=== PATIENT | male | born 1985 | race Caucasian/White ===

== ENCOUNTER 2017-04-08 21:18 | Emergency (ER) ==
[2017-04-08 21:24] VITALS: BP 155/79; TEMP 98.6; BMI 19.6
[2017-04-08] MEDS ORDERED: ULTRAM PO STA (21:40)
[2017-04-08] MEDS ORDERED: AMOXIL PO STA (21:40)
--- NOTE | 2017-04-08 21:46 | ED.PDOC ---
General ED Provider: Dr. RAUL BURNS Chief Complaint: Tooth Problem Stated Complaint: Patient states he has had bad teeth for a while but has not been able to get to a dentist that takes medicaid. States that his teeth started hurting 2 days ago. They are mostly on the front involving the gums also. Tried over the counter Tylenol and motrin with no relief. Time Seen by Physician: 21:44 Mode of Arrival: Walk-In Information Source: Patient, Family Exam Limitations: No limitations Nursing and Triage Documentation Reviewed and Agree: Yes EENT Complaint Exam - Dental/Oral Complaint/Exam Mechanism of Injury: No known trauma Onset/Duration: 2 days Symptoms Are: Still present Timing: Constant Initial Severity: Moderate Current Severity: Severe Location: Most of the front teeth and gums Character: Reports: Aching, Throbbing Aggravating: Reports: Heat, Cold, Chewing Alleviating: Reports: None Associated Signs and Symptoms: Reports: Swelling, Foul odor, Foul taste in mouth Cardiac Risk Factors: Reports: None Dental/Oral Surgical History: Reports: None Tooth Findings: Present: Gross decay, Gross caries Cervical Lymphadenopathy Present: No Facial Swelling Present: No Bleeding Present: No Oropharynx Findings: Absent: Clots, Active bleeding Septal Hematoma: No Foreign Body Present: No Dysphagia Present: No Drooling Present: No Asymmetrical Tonsillar Swelling Present: No Uvula Midline: No Sangeetha-tonsillar Fluctuence: No Trismus Present: No Palatal Petechiae Present: No Scarlatinaform Rash Present: No Teeth Picture: 1 - dental caries. Differential Diagnoses: Dental Abcess, Dental Caries, Gingivitis Review of Systems - Review Of Systems Constitutional: Reports: No symptoms Eyes: Reports: No symptoms Ears, Nose, Mouth, Throat: Reports: Mouth pain, Mouth swelling, Loose teeth Respiratory: Reports: No symptoms Cardiac: Reports: No symptoms GI: Reports: No symptoms : Reports: No symptoms Musculoskeletal: Reports: No symptoms Skin: Reports: No symptoms Neurological: Reports: No symptoms Endocrine: Reports: No symptoms Hematologic/Lymphatic: Reports: No symptoms All Other Systems: Reviewed and Negative Past Medical History - Past Medical History Previously Healthy: Yes Endocrine: Reports: None Cardiovascular: Reports: None Respiratory: Reports: None Hematological: Reports: None Gastrointestinal: Reports: None Genitourinary: Reports: None Neuro/Psych: Reports: None Musculoskeletal: Reports: None Cancer: Reports: None - Surgical History General Surgical History: Reports: None - Family History Family History: Reports: None - Social History Smoking Status: Current every day smoker, Heavy tobacco smoker Hx Substance Use: No Alcohol Screening: Occasionally - Immunizations Tetanus Shot up to Date: Yes Physical Exam - Physical Exam Appearance: Ill-appearing, No pain distress, Well-nourished Ill-appearing: Moderate Pain Distress: Moderate Eyes: JULIÁN, EOMI, Conjunctiva clear ENT: Ears normal, Nose normal, Oropharynx normal Respiratory: Airway patent, Breath sounds clear, Breath sounds equal, Respirations nonlabored Cardiovascular: RRR, Pulses normal, No rub, No murmur GI/: Soft, Nontender, No masses, Bowel sounds normal, No Organomegaly Musculoskeletal: Normal strength, ROM intact, No edema, No calf tenderness Skin: Warm, Dry, Normal color Neurological: Sensation intact, Motor intact, Reflexes intact, Cranial nerves intact, Alert, Oriented Psychiatric: Affect appropriate, Mood appropriate Critical Care Note - Critical Care Note Total Time (mins): 0 Course - Course Orders, Labs, Meds: Orders Category Date Time Status Amoxicillin [Amoxil] MEDS 04/08/17 21:40 Stat 500 mg PO ONCE STA Tramadol HCl [Ultram] MEDS 04/08/17 21:40 Stat 50 mg PO ONCE STA Medications Discontinued Medications Generic Name Dose Route Start Last Admin Trade Name Freq PRN Reason Stop Dose Admin Amoxicillin 500 mg 04/08/17 21:40 Amoxil PO 04/08/17 21:41 ONCE STA Tramadol HCl 50 mg 04/08/17 21:40 Ultram PO 04/08/17 21:41 ONCE STA Vital Signs: Temp Pulse Resp BP Pulse Ox 04/08/17 21:19 98.6 F 86 18 155/79 H 96 Departure - Departure Time of Disposition: 21:47 Disposition: HOME SELF-CARE Discharge Problem: Dental caries into pulp, Toothache Instructions: Dental Abscess (ED), Toothache (ED), Dry Mouth (ED) Condition: Fair Pt referred to PMD for follow-up: Yes Additional Instructions: Take Medications as prescribed Follow up with Dr GURROLA Prescriptions: Amoxicillin [Amoxil] 500 mg PO TID #30 capsule Ibuprofen [Motrin] 600 mg PO Q6H PRN #30 tablet PRN Reason: Analgesia Tramadol HCl [Ultram] 50 mg PO Q6H PRN #14 tablet PRN Reason: Severe Pain Allergies/Adverse Reactions: Allergies codeine Adverse Reaction (Verified 04/08/17 21:24) N/V Home Medications: Ambulatory Orders Amoxicillin [Amoxil] 500 mg PO TID #30 capsule 04/08/17 Ibuprofen [Motrin] 600 mg PO Q6H PRN #30 tablet 04/08/17 Tramadol HCl [Ultram] 50 mg PO Q6H PRN #14 tablet 04/08/17 Disposition Discussed With: Patient, Family
== END 2017-04-08 22:06 | disposition home or self-care (01) ==
LOC: ED 21:18
DX: K02.7 Dental root caries (principal); F17.210 Nicotine dependence, cigarettes, uncomplicated
CPT/HCPCS: 99282

== ENCOUNTER 2017-11-21 10:01 | Emergency (ER) ==
[2017-11-21 10:03] VITALS: BP 130/71; TEMP 97.5; BMI 20.3
--- NOTE | 2017-11-21 10:43 | ED.PDOC ---
General ED Provider: Dr. BETO MAYEN Chief Complaint: Tooth Problem Stated Complaint: CC:TOOTH ACHE. HPI: ZULY STATES THAT HE HAS EXPERIENCE PAIN IN THE LOWER LEFT JAW FOR 2-3 DAYS ALONG WITH SEVERE TOOTHACHE. PATIENT STATES THE PAIN HAS PROGRESSIVELY WORSENED SINCE THEN AND JAW IS SWOLLEN. 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 Time Seen by Physician: 10:20 Mode of Arrival: Walk-In Information Source: Patient Primary Care Provider: UNKNOWN- Nursing and Triage Documentation Reviewed and Agree: Yes Reviewed sepsis parameters & appropriate labs ordered?: Yes System Inflammatory Response Syndrome: Not Applicable Sepsis Protocol: For patient's 13 years and over: Temp is 96.8 and below OR 101 and greater Pulse >90 BPM Resp >20/minute Acutely Altered Mental Status Are patient's symptoms suggestive of a new infection, such as: -Pneumonia -Skin, Soft Tissue -Endocarditis -UTI -Bone, Joint Infection -Implantable Device -Acute Abdominal Infection -Wound Infection -Meningitis -Blood Stream Catheter Infection -Unknown System Inflammatory Response Syndrome: Not Applicable EENT Complaint Exam - Dental/Oral Complaint/Exam Mechanism of Injury: No known trauma Onset/Duration: for several days Symptoms Are: Still present Timing: Constant Current Severity: Severe Character: Reports: Aching, Throbbing Aggravating: Reports: Cold, Chewing Alleviating: Reports: None Associated Signs and Symptoms: Reports: Swelling, Foul taste in mouth Related History: Reports: Previous tooth problem Cardiac Risk Factors: Reports: None Tooth Findings: Present: Gross decay, Gross caries Cervical Lymphadenopathy Present: No Facial Swelling Present: No Bleeding Present: No Dysphagia Present: No Drooling Present: No Asymmetrical Tonsillar Swelling Present: No Uvula Midline: No Sangeetha-tonsillar Fluctuence: No Trismus Present: No Palatal Petechiae Present: No Scarlatinaform Rash Present: No Review of Systems - Review Of Systems Constitutional: Reports: No symptoms Eyes: Reports: No symptoms Ears, Nose, Mouth, Throat: Reports: Mouth pain, Mouth swelling. Denies: Ear pain, Ear discharge, Nose pain, Nose discharge, Epistaxis, Throat swelling Respiratory: Reports: No symptoms Cardiac: Reports: No symptoms GI: Reports: No symptoms : Reports: No symptoms Musculoskeletal: Reports: No symptoms Skin: Reports: No symptoms Neurological: Reports: No symptoms Endocrine: Reports: No symptoms Hematologic/Lymphatic: Reports: Swollen glands (lt submandibular) All Other Systems: Reviewed and Negative Past Medical History - Past Medical History Previously Healthy: Yes Endocrine: Reports: None Cardiovascular: Reports: None Respiratory: Reports: None Hematological: Reports: None Gastrointestinal: Reports: None Genitourinary: Reports: None Neuro/Psych: Reports: None Musculoskeletal: Reports: None Cancer: Reports: None - Surgical History General Surgical History: Reports: None - Family History Family History: Reports: None - Social History Smoking Status: Current every day smoker, Heavy tobacco smoker Hx Substance Use: No Alcohol Screening: Occasionally - Immunizations Tetanus Shot up to Date: Yes Physical Exam - Physical Exam Appearance: Well-appearing, Thin Ill-appearing: Mild Pain Distress: Mild Eyes: JULIÁN, EOMI, Conjunctiva clear ENT: Ears normal, Nose normal, Oropharynx normal (area of Lt mid Mandible edematous and tender. Oral cavity exam reveale advanced global dental decay and carries. Site Lower Lt posterior molar with abscess and drainage from apparrent spontaneous drainage) Neck: Supple Respiratory: Airway patent, Breath sounds clear Cardiovascular: RRR, Pulses normal GI/: Soft, Nontender, No masses, Bowel sounds normal Musculoskeletal: Normal strength Skin: Warm, Normal color Neurological: Sensation intact, Motor intact, Reflexes intact, Alert, Oriented Psychiatric: Affect appropriate, Anxious Critical Care Note - Critical Care Note Total Time (mins): 0 Course - Course Hematology/Chemistry: 11/21/17 10:52 11/21/17 10:52 Vital Signs: Temp Pulse Resp BP Pulse Ox 11/21/17 10:01 97.5 F L 82 20 130/71 95 Departure - Departure Time of Disposition: 14:20 Disposition: HOME SELF-CARE Discharge Problem: Abscess, dental Instructions: Dental Abscess (ED) Condition: Good Pt referred to PMD for follow-up: Yes (3-5 days) IPMP verified?: No Additional Instructions: Take meds as directed follow up with PCP or Dentist in 5-7 days Prescriptions: Metronidazole [Flagyl] 500 mg PO Q8HR #30 tablet Amoxicillin/Potassium Clav [Augmentin 875-125 mg Tab] 1 tab PO Q12HR #20 tablet Tramadol HCl 50 mg PO 3-4XD PRN #20 tablet PRN Reason: Pain Allergies/Adverse Reactions: Allergies codeine Adverse Reaction (Verified 11/21/17 10:03) N/V Home Medications: Ambulatory Orders Amoxicillin/Potassium Clav [Augmentin 875-125 mg Tab] 1 tab PO Q12HR #20 tablet 11/21/17 Ibuprofen 800 mg PO TID PRN #40 tablet 11/21/17 Metronidazole [Flagyl] 500 mg PO Q8HR #30 tablet 11/21/17 Tramadol HCl 50 mg PO 3-4XD PRN #20 tablet 11/21/17 Disposition Discussed With: Patient, Family
[2017-11-21] MEDS ORDERED: TORADOL IM STA (10:46)
--- NOTE | 2017-11-21 12:03 | CT ---
Exam: CT maxillofacial without and with contrast History: Left-sided mandibular swelling and dental abscess Technique: [address] maxillofacial with multiplanar reformations FINDINGS: Left-sided facial swelling centered at the mandible. Offending apical lucency of the secon d premolar with lateral cortical breakthrough. Phlegmonous changes adjacent to the outer cortex of t he mandible. No well-defined soft tissue abscess. Reactive submandibular lymph nodes. The submandi bular and parotid glands appear normal. Impression: 1. Left facial swelling centered at the mandible. Offending tooth likely the second premolar with a pical abscess and cortical breakthrough. Phlegmonous soft tissue mass without discrete well-defined abscess.
[2017-11-21] MEDS ORDERED: TORADOL IVP STA (12:30)
[2017-11-21] MEDS ORDERED: UNASYN 1.5 GM in SODIUM CHLORIDE 100 ML IV STA (12:59)
[2017-11-21] MEDS ORDERED: UNASYN ONE (13:04)
[2017-11-21] MEDS ORDERED: ULTRAM PO STA (13:42)
== END 2017-11-21 14:56 | disposition home or self-care (01) ==
LOC: ED 10:01
DX: K04.7 Periapical abscess without sinus (principal); K02.7 Dental root caries; F17.210 Nicotine dependence, cigarettes, uncomplicated
CPT/HCPCS: 36415; 80053; 85025; 85651; 96365; 96375; 99283